=== PATIENT | female | born 1990 | race Two or more races ===

== ENCOUNTER 2021-04-19 15:34 | Outpatient (CLI) | payer OTHER | END 2021-04-19 16:37 | disposition home or self-care (01) | LOC: PRENATAL 15:34 | PROVIDERS: ATTEND Obstetrics & Gynecology Maternal & Fetal Medicine | DX: O35.0XX1 Maternal care for (suspected) central nervous system malformation in fetus, fetus 1 (principal); O35.3XX1 Maternal care for (suspected) damage to fetus from viral disease in mother, fetus 1; O98.512 Other viral diseases complicating pregnancy, second trimester; Z36.89 Encounter for other specified antenatal screening; Z3A.19 19 weeks gestation of pregnancy ==

== ENCOUNTER 2021-08-21 00:15 | Outpatient (CLI) | payer OTHER ==
[~2021-08-21] VITALS: Ht 149.9 cm; Wt 68.0 kg
[2021-08-21] MEDS ORDERED: PRENATAL CAPLE1 EAC1 PO (01:30)
== END 2021-08-21 19:30 | disposition home or self-care (01) ==
LOC: OBS/DEL 00:15
PROVIDERS: ATTEND Obstetrics & Gynecology
DX: O36.8330 Maternal care for abnormalities of the fetal heart rate or rhythm, third trimester, not applicable or unspecified (principal); Z3A.36 36 weeks gestation of pregnancy

== ENCOUNTER 2021-08-27 17:44 | Inpatient (IN) | payer OTHER ==
[~2021-08-27] VITALS: Ht 149.9 cm; Wt 68.0 kg
[~2021-08-27 17:44] MED LIST: PRENATAL CAPLE1 EAC1 PO
== END 2021-08-30 11:04 | disposition home or self-care (01) | DRG 788 ==
LOC: OB/GYN 17:44 → LDR 17:44 → OB/GYN 08-28 23:25
PROVIDERS: ADMIT Obstetrics & Gynecology; ATTEND Obstetrics & Gynecology
PROC: 4A1HXCZ Monitoring of Products of Conception, Cardiac Rate, External Approach (ICD-10-PCS; 2021-08-27)
PROC: 10D00Z1 Extraction of Products of Conception, Low, Open Approach (ICD-10-PCS; principal; 2021-08-28 20:00)
DX: O62.0 Primary inadequate contractions (principal); O36.5930 Maternal care for other known or suspected poor fetal growth, third trimester, not applicable or unspecified; Z3A.38 38 weeks gestation of pregnancy; Z37.0 Single live birth; Z20.822 Contact with and (suspected) exposure to COVID-19

== ENCOUNTER 2022-12-03 16:10 | Outpatient (CLI) | payer OTHER | END 2022-12-03 17:06 | disposition home or self-care (01) | LOC: PRENATAL 16:10 | PROVIDERS: ATTEND Obstetrics & Gynecology Maternal & Fetal Medicine | DX: O35.3XX0 Maternal care for (suspected) damage to fetus from viral disease in mother, not applicable or unspecified (principal); O44.00 Complete placenta previa NOS or without hemorrhage, unspecified trimester; O34.219 Maternal care for unspecified type scar from previous cesarean delivery; Z3A.20 20 weeks gestation of pregnancy ==

== ENCOUNTER 2023-02-23 16:09 | Outpatient (CLI) | payer OTHER | END 2023-02-23 16:10 | disposition home or self-care (01) | LOC: PRENATAL 16:09 | PROVIDERS: ATTEND Obstetrics & Gynecology Maternal & Fetal Medicine | DX: O26.849 Uterine size-date discrepancy, unspecified trimester (principal); O36.8199 Decreased fetal movements, unspecified trimester, other fetus; O34.219 Maternal care for unspecified type scar from previous cesarean delivery; Z3A.31 31 weeks gestation of pregnancy ==

== ENCOUNTER 2023-03-25 00:23 | Inpatient (IN) | payer OTHER ==
[~2023-03-25] VITALS: Ht 149.9 cm; Wt 67.1 kg
[2023-03-25 01:19] LABS: HEMATOCRIT 31.4 % (36.0-45.00); MEAN CELL VOLUME 86.2 fL (80.00-100.00); MEAN CORPUSCULAR HEMOGLOBIN 30.2 pg (27.00-32.0); MEAN CORPUSCULAR HGB CONC 35.1 g/dl (32.0-36.0); PH,URINE 7.5 (5.0-8.0); PLATELET COUNT 315 K/uL (150-450); RED BLOOD COUNT 3.65 M/uL (4.00-6.00); RED CELL DISTRIBUTION WIDTH 12.9 % (11.5-14.5); URINE APPEARANCE Clear; URINE BILIRRUBIN Negative (NEGATIVE); URINE BLOOD Negative; URINE COLOR Yellow; URINE GLUCOSE Negative (NEGATIVE); URINE LEUKOCYTE Large; URINE NITRATE Negative; URINE PROTEIN Negative (NEGATIVE)
[2023-03-25 01:23] LABS: URINE BACTERIA 1761.3 uL (0.0-1933); URINE EPITHELIAL CELLS 79.4 uL (0.0-38.8); URINE RBC 69.8 uL (0.0-20.8); URINE WBC 65.8 uL (0.0-23.2)
[2023-03-25 02:28] LABS: URINE YEAST MANY /hpf
[2023-03-27] MEDS ORDERED: CEFUROXIME500 MG PO (09:47)
== END 2023-03-27 12:12 | disposition home or self-care (01) | DRG 833 ==
LOC: OBS/DEL 00:23 → LDR 17:18
PROVIDERS: ADMIT Obstetrics & Gynecology; ATTEND Obstetrics & Gynecology
PROC: 4A1HXCZ Monitoring of Products of Conception, Cardiac Rate, External Approach (ICD-10-PCS; principal; 2023-03-25)
PROC: BY4FZZZ Ultrasonography of Third Trimester, Single Fetus (ICD-10-PCS; 2023-03-25)
PROC: BU4CZZZ Ultrasonography of Uterus and Ovaries (ICD-10-PCS; 2023-03-25)
DX: O26.893 Other specified pregnancy related conditions, third trimester (principal); R10.2 Pelvic and perineal pain; O60.03 Preterm labor without delivery, third trimester; O26.843 Uterine size-date discrepancy, third trimester; O36.8130 Decreased fetal movements, third trimester, not applicable or unspecified; Z3A.35 35 weeks gestation of pregnancy; Z20.822 Contact with and (suspected) exposure to COVID-19

== ENCOUNTER 2023-04-07 22:00 | Inpatient (IN) | payer OTHER ==
[~2023-04-07] VITALS: Ht 149.9 cm; Wt 2.7 kg
[~2023-04-07 22:00] MED LIST changes: +CEFUROXIME500 MG PO
[2023-04-07 23:37] LABS: URINE APPEARANCE Clear; URINE BILIRRUBIN Negative (NEGATIVE); URINE BLOOD Negative; URINE COLOR Yellow; URINE GLUCOSE Negative (NEGATIVE); URINE LEUKOCYTE Small; URINE NITRATE Negative; URINE PROTEIN Negative (NEGATIVE)
[2023-04-07 23:38] LABS: HEMATOCRIT 30.5 % (36.0-45.00); HEMOGLOBIN 10.3 g/dL (12.0-15.00); MEAN CELL VOLUME 86.5 fL (80.00-100.00); MEAN CORPUSCULAR HEMOGLOBIN 29.4 pg (27.00-32.0); PLATELET COUNT 277 K/uL (150-450); RED BLOOD COUNT 3.52 M/uL (4.00-6.00); RED CELL DISTRIBUTION WIDTH 13.3 % (11.5-14.5)
[2023-04-07 23:40] LABS: URINE BACTERIA 565.4 uL (0.0-1933); URINE EPITHELIAL CELLS 41.8 uL (0.0-38.8); URINE RBC 70.2 uL (0.0-20.8); URINE WBC 15.4 uL (0.0-23.2)
[2023-04-07 23:51] LABS: INR 0.97; PARTIAL THROMBOPLASTIN TIME 27.3 SECONDS (22.0-34.0); PROTHROMBIN TIME 10.2 SECONDS (9.0-11.5)
[2023-04-08 00:07] LABS: URINE YEAST MANY /hpf
[2023-04-08 18:20] LABS: ABG PH 7.338 (7.35-7.45); ABG PO2 25.6 mmHg (80-100)
[2023-04-08 18:21] LABS: BASE EXCESS -2.8 mmol/l; BICARBONATE 23.1 mmol/l (23-25); SaO2 41.2 %; Tco2 24.4 mmol/l; o2 21 %
[2023-04-08 19:47] LABS: HEMOGLOBIN 12.3 g/dL (12.0-15.00); MEAN CELL VOLUME 86.6 fL (80.00-100.00); MEAN CORPUSCULAR HEMOGLOBIN 28.7 pg (27.00-32.0); MEAN CORPUSCULAR HGB CONC 33.1 g/dl (32.0-36.0); PLATELET COUNT 271 K/uL (150-450); RED BLOOD COUNT 4.28 M/uL (4.00-6.00); RED CELL DISTRIBUTION WIDTH 13.5 % (11.5-14.5)
== END 2023-04-11 14:23 | disposition home or self-care (01) | DRG 785 ==
LOC: LDR 22:00 → OB/GYN 22:00
PROVIDERS: ADMIT Obstetrics & Gynecology; ATTEND Obstetrics & Gynecology
PROC: 4A1HXCZ Monitoring of Products of Conception, Cardiac Rate, External Approach (ICD-10-PCS; 2023-04-07)
PROC: 0UB70ZZ Excision of Bilateral Fallopian Tubes, Open Approach (ICD-10-PCS; 2023-04-08)
PROC: 10D00Z1 Extraction of Products of Conception, Low, Open Approach (ICD-10-PCS; principal; 2023-04-08 13:00)
DX: O34.211 Maternal care for low transverse scar from previous cesarean delivery (principal); Z30.2 Encounter for sterilization; Z3A.37 37 weeks gestation of pregnancy; Z37.0 Single live birth; Z20.822 Contact with and (suspected) exposure to COVID-19